=== PATIENT | female | born 1960 | race Caucasian/White ===

== ENCOUNTER → 2020-01-14 | Outpatient (CLI) | payer MEDICARE, MEDICAID ==
[~2020-01-14] MED LIST: ALBU8.5H2 IH; ATR20T PO; CITA20TA4 PO; CYCL10TA9 PO; FNT100TD TD; GADOBUTROL 10 MMOL/10 ML (GADAVIST) VIAL IV ONE; LD5PT TOP; LISI10TA2 PO; MECL25TA56 PO; MPR22T TP; PRM12.5SU RC; ZLP5T PO
[2020-01-14 10:40] LABS: ALBUMIN 4.5 GM/DL (3.2-4.5); CHLORIDE 109 MMOL/L (98-107); POTASSIUM 4.3 MMOL/L (3.6-5.0); SODIUM 139 MMOL/L (135-145)
[2020-01-14 10:41] LABS: CALCIUM 9.2 MG/DL (8.5-10.1)
[2020-01-14 10:42] LABS: GLUCOSE 124 MG/DL (70-105); TOTAL PROTEIN 7.5 GM/DL (6.4-8.2)
[2020-01-14 10:43] LABS: CARBON DIOXIDE 18 MMOL/L (21-32)
[2020-01-14 10:44] LABS: BILIRUBIN,TOTAL 0.5 MG/DL (0.1-1.0)
[2020-01-14 10:46] LABS: ALKALINE PHOSPHATASE 120 U/L (40-136); CREATININE SERUM 0.89 MG/DL (0.60-1.30); GFR ESTIMATED > 60
[2020-01-14 10:47] LABS: BUN/CREATININE RATIO 24
[2020-01-14 10:49] LABS: ALANINE AMINOTRANSFERASE 28 U/L (0-55)
--- NOTE | 2020-01-14 13:07 | Diagnostic Imaging Report ---
PROCEDURE: MR imaging of the brain without contrast. TECHNIQUE: Multiplanar, multisequence MR imaging of the brain was performed without contrast. INDICATION: Headaches. Left-sided facial numbness. COMPARISON: none Findings: No acute ischemia, mass, or hemorrhage. Scattered small focal T2 hyperintense signal lesions are seen in the periventricular and subcortical white matter. The ventricles, cortical sulci, and basilar cisterns are symmetric and unremarkable. The sellar and suprasellar regions have a normal appearance. The brainstem and posterior fossa are unremarkable. The paranasal sinuses demonstrate normal signal characteristics. A small right mastoid effusion is present. Bilateral lens implants are noted. The globes and orbits are symmetric and unremarkable. The scalp and calvarium have a normal appearance. IMPRESSION: 1. No acute ischemia, mass, or hemorrhage. 2. Small amount of scattered T2 hyperintense signal lesions in the periventricular and subcortical white matter. These are nonspecific and can be seen with sequelae of migraine versus chronic microvascular disease. These do not appear particularly suspicious for demyelination. 3. Small right mastoid effusion. Dictated by: Dictated on workstation # [id number]
== END ==
LOC: RAD 09:57
PROVIDERS: ATTEND Nurse Practitioner Family
DX: H74.8X1 Other specified disorders of right middle ear and mastoid (principal); G93.89 Other specified disorders of brain; R20.0 Anesthesia of skin; R51 Headache
CPT/HCPCS: 36415; 70551; 80053

== ENCOUNTER → 2021-03-20 | Outpatient (CLI) | payer MEDICAID, MEDICARE ==
[~2021-03-20] MED LIST changes: -GADOBUTROL 10 MMOL/10 ML (GADAVIST) VIAL IV ONE
== END ==
LOC: LABNPT 06:43
PROVIDERS: ATTEND Emergency Medicine
DX: Z01.812 Encounter for preprocedural laboratory examination (principal); Z20.822 Contact with and (suspected) exposure to COVID-19
CPT/HCPCS: 87635